=== PATIENT | female | born 1935 | race Caucasian/White ===

== ENCOUNTER 2017-03-30 12:25 | Emergency (ER) | payer MEDICARE, BC ==
[~2017-03-30 12:25] MED LIST: ACET500CAP PO; ASAB PO; ATARAX50B PO; B COMPLETE PO; B COMPLEX-C OR; C25 PO; C5; COQ-1075 MG PO; COQ10100 MG PO; FISH-EPA1000 MG PO; GLUCCHONDR PO; GLUCOSAMINEPO; LEVOTHROID50 MCG PO; LEVOTHYROXIN25 MCG PO; LIPITOR20 PO; LOTE20 PO; LOTE40 PO; LOTENSIN HCT1 TA3 PO; MAX25 PO; MOTRIN IB200 MG PO; MULTI-VIT HP PO; MULTIVIT/MIN PO; MULTIVITAMI1 PO; OXYCOD PO; PCET PO; PREM9 PO; PRILO PO; PROZ10 PO; VIST100 PO; VITAMIN C100 MG PO; VITC500 PO; VOLT50 PO; WELLSR150 PO; XYZAL5 MG PO; ZOCOR20 PO; [UNRECOGNIZED DRUG - OTHER]; [UNRECOGNIZED DRUG - OTHER] T
== END 2017-03-30 16:45 | disposition home or self-care (01) ==
LOC: ER 12:25
DX: M50.30 Other cervical disc degeneration, unspecified cervical region (principal); I10 Essential (primary) hypertension; Z88.5 Allergy status to narcotic agent; Z88.1 Allergy status to other antibiotic agents; Z79.899 Other long term (current) drug therapy; Z79.01 Long term (current) use of anticoagulants
CPT/HCPCS: 70450; 72125; 93005; 99284